=== PATIENT | male | born 1990 | race Caucasian/White ===

== ENCOUNTER 2022-11-15 10:08 | Emergency (ER) | payer SELFPAY ==
[2022-11-15] VITALS (11 sets, daily range): BP systolic 121–138; BP diastolic 57–73; PULSE 60–90; RESP 15–18; TEMP 36.2; O2SAT 95–100; BMI 23.7
--- NOTE | 2022-11-15 10:57 | DI.RAD.S_ITS ---
PROCEDURE: XR FOOT LT MIN 3V INDICATIONS: foot pain TECHNIQUE: 3 views of the foot were acquired. COMPARISON: None. FINDINGS: Bones: There is prominent irregularity with joint space narrowing and prominent remodeling with bony fragmentation along the Lisfranc joint. The distal 1st metatarsal is abnormal and highly irregular. Soft tissues: No tibiotalar joint effusion. Achilles tendon appears normal. IMPRESSION: Apparent Charcot arthropathy along the Lisfranc joint. Please correlate with known patient history. Apparent remote fracture with remodeling change involving the distal 1st metatarsal. If there is strong suspicion for developing osteomyelitis, please consider a dedicated MRI without and with contrast for further evaluation (assuming that there is no contraindication to MRI). Dictated by: Julio C Gomez M.D. on 11/15/2022 at 10:34 Approved by: Julio C Gomez M.D. on 11/15/2022 at 10:35
--- NOTE | 2022-11-15 13:00 | DI.CT.S_ITS ---
PROCEDURE: CT LE LT W CON INDICATIONS: Concern for osteo myelitis, x-ray shows Charcot arthropathy TECHNIQUE: After the administration of intravenous contrast, 3 mm axial sections acquired of the left foot and ankle, with coronal and sagittal reformats. COMPARISON: [facility], CR, XR FOOT LT MIN 3V, 11/15/2022, 11:05. FINDINGS: Image quality: Excellent. Bones: There is midfoot collapse and superior subluxation along 2nd through 5th tarsal metatarsal joints and extensive subcortical erosive changes most consistent with Charcot's arthropathy. Fairly well corticated margin along the area of erosion suggestive of a chronic process. Mild to moderate osteoarthritic changes are noted throughout rest of the left foot. Likely old fracture involving distal portion of 1st metatarsal head and neck with well corticated margin and intraosseous cystic area involving mid to distal 1st metatarsal shaft. Additional well corticated bony fragments are also noted within 1st MTP joint. Chronic appearing deformity of medial sesamoid of 1st metatarsal head is also seen. No acute fracture or dislocation. No other area of abnormal bony erosive changes or periosteal reaction is seen. Soft tissues: Diffuse soft tissue swelling and edema in visualized throughout distal left lower leg, around left ankle and foot particularly surrounding surrounding midfoot. No open wound or ulceration is identified. No subcutaneous emphysema. No discrete peripherally enhancing fluid collection is seen within left foot and ankle soft tissue. No gross full-thickness tendon rupture. No abnormal soft tissue calcifications. IMPRESSION: 1. Significant soft tissue swelling and edema in left ankle and foot particularly in midfoot region suggestive of cellulitis. No discrete drainable abscess collection is seen. 2. Chronic appearing deformity involving midfoot joints particularly along 2nd through 5th TMT joints with midfoot collapse consistent with changes related to Charcot's arthropathy. The absence of open skin wound/ ulceration and fairly well corticated margin along the area of possible erosions makes osteomyelitis less likely. 3. Likely old fracture involving 1st metatarsal head/neck region . No acute left foot fracture or dislocation. 4. No abnormal soft tissue calcifications. No full-thickness tendon rupture. Dictated by: Remigio Sullivan M.D. on 11/15/2022 at 15:23 Approved by: Remigio Sullivan M.D. on 11/15/2022 at 15:32
--- NOTE | 2022-11-15 13:19 | ED.LOWEXIN ---
HPI - Extremity Injury (Lower) <BRANDEE Palma - Last Filed: 11/15/22 17:21> General Chief Complaint: Extremity Injury, Lower Stated Complaint: lt foot pain from a fall on 11/02/22 Time Seen by Provider: 11/15/22 12:51 Source: patient Mode of arrival: Ambulatory History of Present Illness HPI Narrative: This is a 32-year-old male with history type 1 diabetes, bilateral foot infections secondary to diabetic ulcers with osteomyelitis, right foot surgery with bone removal and states he is had surgery on left foot in 2020 and was on antibiotics for a long time. He denies any recent antibiotics, infection, fever, chills but presents today with concern for osteomyelitis and fracture in his left mid foot/ankle or calcaneus that occurred on 10/29/2022 with a weight-bearing load into his left ankle while skateboarding. He states he has history of a fallen arch. He states that his pain has progressively gotten worse, he is able to ambulate on and he has been working. He is currently working for the [employer] at the [employer] nearby. 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 No prior medical records to review. Patient denies fever, chills, upper respiratory infection, weakness, sensation changes that are new other than pain in his midfoot and posterior ankle. He denies erythema, warmth, symptoms of cellulitis, an open wound, or drainage. Note: While he was waiting for lab work and orders after history and physical, he thought he felt like his blood sugar was low and esterase some juice, he started drinking the juice, blood sugar glucose was 58. Did not have mental status changes. Patient was moved to a room with a monitor for more evaluation Related Data Previous Rx's Medication Instructions Recorded diclofenac sodium 1 % topical gel 2 g topical QID #100 grams 11/15/22 hydrocodone 5 mg-acetaminophen 325 1 tab PO TID PRN pain #14 tabs 11/15/22 mg tablet oxycodone-acetaminophen 5 mg-325 1 tab PO Q8H #10 tabs 11/15/22 mg tablet (Percocet) Allergies Allergy/AdvReac Type Severity Reaction Status Date / Time No Known Drug Allergies Allergy Verified 11/15/22 10:54 Review of Systems <BRANDEE Palma - Last Filed: 11/15/22 17:21> Review of Systems ROS Unobtainable: All systems reviewed & are unremarkable except as noted in HPI and below Patient History <BRANDEE Palma - Last Filed: 11/15/22 17:21> Social History Smoking Status: Current every day smoker Smoking Status: Current every day smoker alcohol intake frequency: holidays/special occasions only Substance Use Type: marijuana Exam <BRANDEE Palma - Last Filed: 11/15/22 17:21> Narrative Exam Narrative: Reviewed vitals signs and nursing notes. General: cooperative, comfortable, in no acute distress, well groomed, afebrile HEENT: symmetrical facial expressions, moist mucous membranes Cardiovascular: regular rate and rhythm, no peripheral edema, warm extremities Respiratory: normal effort, able to speak in complete sentences, without wheezing, stridor, or abnormal breath sounds. No retractions or tachypnea. GI: abdomen soft, nontender to palpation, nondistended, without masses, rebound tenderness or exquisite tenderness with exam. MSK: moves all extremities, neurovascularly intact, no weakness, normal tone, patient's left foot with edema in the midfoot, ecchymosis and tenderness posterior to bilateral malleoli, tenderness over his Achilles tendon, sensation intact and patient complaining of pain primarily Skin: brisk capillary refill, without pallor or erythema Neuro: normal speech and cognition, A&O x3, ambulatory, clear speech Psych: mental status is grossly normal, congruent mood, normal affect, pleasant and cooperative Initial Vital Signs Initial Vital Signs: Vital Signs Temperature 97.2 F L 11/15/22 10:54 Pulse Rate 72 11/15/22 10:54 Respiratory Rate 15 11/15/22 10:54 Blood Pressure 130/68 11/15/22 10:54 Pulse Oximetry 99 11/15/22 10:54 Oxygen Delivery Method 11/15/22 10:54 <Edward Guo DO - Last Filed: 11/15/22 17:27> Initial Vital Signs Initial Vital Signs: Vital Signs Temperature 97.2 F L 11/15/22 10:54 Pulse Rate 72 11/15/22 10:54 Respiratory Rate 15 11/15/22 10:54 Blood Pressure 130/68 01/11/23 10:54 Pulse Oximetry 99 11/15/22 10:54 Oxygen Delivery Method 11/15/22 10:54 Course <BRANDEE Palma - Last Filed: 11/15/22 17:21> Orders Ordered: ED Orders 11/15/22 10:57 XR foot LT min 3V Stat 11/15/22 13:00 CT LE LT w con Stat 11/15/22 13:40 CBC Auto Diff [Complete Blood Count AUTO DIFF] Stat CMP [Comprehensive Metabolic Panel] Stat CRP [C-Reactive Protein Quant] Stat Lactate (Lactic Acid) Stat Lipase Stat 11/15/22 13:45 Blood Culture Stat Discontinued Medications Hydrocodone Bitart/Acetaminophen (Hydrocodone/Acet 5/325 Tablet) 1 tab PO NOW ONE Stop: 11/15/22 14:10 Last Admin: 11/15/22 16:43 Dose: 1 tab Documented By: ISH Hydromorphone HCl (Hydromorphone 0.5 Mg Inj) 0.5 mg IV NOW ONE Stop: 11/15/22 13:01 Last Admin: 11/15/22 14:00 Dose: 0.5 mg Documented By: ISH Sodium Chloride (Normal Saline 0.9%) 1,000 mls @ 1,000 mls/hr IV BOLUS ONE Stop: 11/15/22 15:28 Last Infusion: 11/15/22 15:43 Dose: 0 mls/hr Documented By: Admin: 11/15/22 14:47 Dose: 1,000 mls/hr Documented By: ISH Dextrose/Sodium Chloride (Dextrose 5%-0.9% Ns) 1,000 mls @ 125 mls/hr IV CONT ELEANOR Last Infusion: 11/15/22 16:54 Dose: 0 mls/hr Documented By: ISH(2) Infusion: 11/15/22 16:39 Dose: 0 mls/hr Documented By: Admin: 11/15/22 15:51 Dose: 125 mls/hr Documented By: ISH Ketorolac Tromethamine (Ketorolac 30 Mg/Ml Vial) 15 mg IV NOW ONE Stop: 11/15/22 16:46 Last Admin: 11/15/22 16:58 Dose: 15 mg Documented By: ISH Vital Signs Vital signs: Vital Signs - 8 hr 11/15/22 10:54 11/15/22 14:04 11/15/22 14:03 Temperature 97.2 F L Pulse Rate 72 78 Respiratory Rate 15 18 Blood Pressure 130/68 134/64 Pulse Oximetry 99 100 Oxygen Delivery Method Room Air Room Air 11/15/22 14:03 11/15/22 14:30 11/15/22 14:30 Temperature Pulse Rate 77 90 Respiratory Rate 18 Blood Pressure 121/57 L Pulse Oximetry 99 98 Oxygen Delivery Method 11/15/22 14:48 11/15/22 14:57 11/15/22 14:57 Temperature Pulse Rate 83 60 Respiratory Rate 18 Blood Pressure 126/73 Pulse Oximetry 100 95 Oxygen Delivery Method 11/15/22 15:01 11/15/22 15:02 11/15/22 15:02 Temperature Pulse Rate 80 Respiratory Rate Blood Pressure 138/63 Pulse Oximetry 97 98 Oxygen Delivery Method 11/15/22 15:30 11/15/22 15:30 11/15/22 16:00 Temperature Pulse Rate 80 Respiratory Rate Blood Pressure 123/66 127/68 Pulse Oximetry 98 Oxygen Delivery Method 11/15/22 16:00 11/15/22 16:30 11/15/22 16:30 Temperature Pulse Rate 76 70 Respiratory Rate 18 Blood Pressure 124/69 Pulse Oximetry 100 99 Oxygen Delivery Method <Edward Guo, DO - Last Filed: 11/15/22 17:27> Orders Ordered: ED Orders 11/15/22 10:57 XR foot LT min 3V Stat 11/15/22 13:00 CT LE LT w con Stat 11/15/22 13:40 CBC Auto Diff [Complete Blood Count AUTO DIFF] Stat CMP [Comprehensive Metabolic Panel] Stat CRP [C-Reactive Protein Quant] Stat Lactate (Lactic Acid) Stat Lipase Stat 11/15/22 13:45 Blood Culture Stat Discontinued Medications Hydrocodone Bitart/Acetaminophen (Hydrocodone/Acet 5/325 Tablet) 1 tab PO NOW ONE Stop: 11/15/22 14:10 Last Admin: 11/15/22 16:43 Dose: 1 tab Documented By: ISH Hydromorphone HCl (Hydromorphone 0.5 Mg Inj) 0.5 mg IV NOW ONE Stop: 11/15/22 13:01 Last Admin: 11/15/22 14:00 Dose: 0.5 mg Documented By: ISH Sodium Chloride (Normal Saline 0.9%) 1,000 mls @ 1,000 mls/hr IV BOLUS ONE Stop: 11/15/22 15:28 Last Infusion: 11/15/22 15:43 Dose: 0 mls/hr Documented By: Admin: 11/15/22 14:47 Dose: 1,000 mls/hr Documented By: ISH Dextrose/Sodium Chloride (Dextrose 5%-0.9% Ns) 1,000 mls @ 125 mls/hr IV CONT ELEANOR Last Infusion: 11/15/22 16:54 Dose: 0 mls/hr Documented By: ISH(2) Infusion: 11/15/22 16:39 Dose: 0 mls/hr Documented By: Admin: 11/15/22 15:51 Dose: 125 mls/hr Documented By: ISH Ketorolac Tromethamine (Ketorolac 30 Mg/Ml Vial) 15 mg IV NOW ONE Stop: 11/15/22 16:46 Last Admin: 11/15/22 16:58 Dose: 15 mg Documented By: ISH Vital Signs Vital signs: Vital Signs - 8 hr 11/15/22 10:54 11/15/22 14:04 11/15/22 14:03 Temperature 97.2 F L Pulse Rate 72 78 Respiratory Rate 15 18 Blood Pressure 130/68 134/64 Pulse Oximetry 99 100 Oxygen Delivery Method Room Air Room Air 11/15/22 14:03 11/15/22 14:30 11/15/22 14:30 Temperature Pulse Rate 77 90 Respiratory Rate 18 Blood Pressure 121/57 L Pulse Oximetry 99 98 Oxygen Delivery Method 11/15/22 14:48 11/15/22 14:57 11/15/22 14:57 Temperature Pulse Rate 83 60 Respiratory Rate 18 Blood Pressure 126/73 Pulse Oximetry 100 95 Oxygen Delivery Method 11/15/22 15:01 11/15/22 15:02 11/15/22 15:02 Temperature Pulse Rate 80 Respiratory Rate Blood Pressure 138/63 Pulse Oximetry 97 98 Oxygen Delivery Method 11/15/22 15:30 11/15/22 15:30 11/15/22 16:00 Temperature Pulse Rate 80 Respiratory Rate Blood Pressure 123/66 127/68 Pulse Oximetry 98 Oxygen Delivery Method 11/15/22 16:00 11/15/22 16:30 11/15/22 16:30 Temperature Pulse Rate 76 70 Respiratory Rate 18 Blood Pressure 124/69 Pulse Oximetry 100 99 Oxygen Delivery Method MDM - Extremity Injury (Lower) <Faye Kaiser, [facility] - Last Filed: 11/15/22 17:21> Lab Data Result diagrams: 11/15/22 13:40 11/15/22 13:40 Labs: Lab Results 11/15/22 11/15/22 11/15/22 Range/Units 13:40 13:40 13:40 WBC 9.5 (4.5-11.0) X10^3/uL RBC 4.33 L (4.5-5.9) X10^6/uL Hgb 13.3 L (13.5-17.5) g/dL Hct 39.3 L (41-53) % MCV 90.7 (80-100) fL MCH 30.6 (26-34) PG MCHC 33.8 (30-36) % RDW 12.8 (11.6-14.8) % Plt Count 287 (150-400) X10^3/uL Neut % (Auto) 45.8 L (50-75) % Lymph % (Auto) 45.6 H (25-40) % [place] % (Auto) 6.4 (3-14) % Eos % (Auto) 1.7 L (2-4) % Baso % (Auto) 0.5 (0-2) % Neut # (Auto) 4400 (1203-9711) /uL Lymph # (Auto) 4300 (7409-8650) /uL [place] # (Auto) 600 (0-900) /uL Eos # (Auto) 200 (0-450) /uL Baso # (Auto) 0 (0-100) /uL Sodium 139 (137-145) mmol/L Potassium 3.6 (3.4-5.1) mmol/L Chloride 99 (98-107) mmol/L Carbon Dioxide 29 (22-32) mmol/L BUN 20 (9-20) mg/dL Creatinine 0.79 (0.66-1.25) mg/dL Estimated GFR > 60 (>60) mL/min BUN/Creatinine Ratio 25.3 H (6-22) Glucose 44 L* (70-100) mg/dL Lactate 2.4 H (0.7-2.1) mmol/L Calcium 9.3 (8.4-10.2) mg/dL Total Bilirubin 0.5 (0.2-1.3) mg/dL AST 32 (17-59) IU/L ALT 30 (<50) IU/L Alkaline Phosphatase 98 (38-126) U/L C-Reactive Protein < 0.5 (<1.0) mg/dL Total Protein 7.8 (6.3-8.2) g/dL Albumin 4.7 (3.5-5.0) g/dL Globulin 3.1 (1.7-4.1) g/dL Albumin/Globulin Ratio 1.5 (1.0-2.8) Lipase 38 (23-300) U/L Point of Care Testing Glucose POC 207 Imaging Data Extremity x-ray #1: Radiologist's Impression: PROCEDURE:? XR FOOT LT MIN 3V ? INDICATIONS:? foot pain ? TECHNIQUE:? 3 views of the foot were acquired.? ? COMPARISON:? None. ? FINDINGS:? ? Bones:? There is prominent irregularity with joint space narrowing and prominent remodeling with bony fragmentation along the Lisfranc joint. ? The distal 1st metatarsal is abnormal and highly irregular. ? Soft tissues:? No tibiotalar joint effusion.? Achilles tendon appears normal.? ? ? IMPRESSION:? Apparent Charcot arthropathy along the Lisfranc joint.? Please correlate with known patient history. ? Apparent remote fracture with remodeling change involving the distal 1st metatarsal. ? If there is strong suspicion for developing osteomyelitis, please consider a dedicated MRI without and with contrast for further evaluation (assuming that there is no contraindication to MRI).? ? Dictated by: Julio C Gomez M.D. on 11/15/2022 at 10:34 ? ? Approved by: Julio C Gomez M.D. on 11/15/2022 at 10:35 ? CT LE: Radiologist's Impression: PROCEDURE:? CT LE LT W CON ? INDICATIONS:? Concern for osteo myelitis, x-ray shows Charcot arthropathy ? TECHNIQUE:? After the administration of intravenous contrast, 3 mm axial sections acquired of the left foot and ankle, with coronal and sagittal reformats. ? ? COMPARISON:? [facility], , XR FOOT LT MIN 3V, 11/15/2022, 11:05. ? FINDINGS:? Image quality:? Excellent.? ? Bones:? There is midfoot collapse and superior subluxation along 2nd through 5th tarsal metatarsal joints and extensive subcortical erosive changes most consistent with Charcot's arthropathy.? Fairly well corticated margin along the area of erosion suggestive of a chronic process.? Mild to moderate osteoarthritic changes are noted throughout rest of the left foot.? Likely old fracture involving distal portion of 1st metatarsal head and neck with well corticated margin and intraosseous cystic area involving mid to distal 1st metatarsal shaft.? Additional well corticated bony fragments are also noted within 1st MTP joint.? Chronic appearing deformity of medial sesamoid of 1st metatarsal head is also seen.? No acute fracture or dislocation.? No other area of abnormal bony erosive changes or periosteal reaction is seen.? ? Soft tissues:? Diffuse soft tissue swelling and edema in visualized throughout distal left lower leg, around left ankle and foot particularly surrounding surrounding midfoot.? No open wound or ulceration is identified.? No subcutaneous emphysema.? No discrete peripherally enhancing fluid collection is seen within left foot and ankle soft tissue.? No gross full-thickness tendon rupture.? No abnormal soft tissue calcifications. ? IMPRESSION:? ? 1. Significant soft tissue swelling and edema in left ankle and foot particularly in midfoot region suggestive of cellulitis.? No discrete drainable abscess collection is seen. ? 2. Chronic appearing deformity involving midfoot joints particularly along 2nd through 5th TMT joints with midfoot collapse consistent with changes related to Charcot's arthropathy.? The absence of open skin wound/ ulceration and fairly well corticated margin along the area of possible erosions makes osteomyelitis less likely. ? 3. Likely old fracture involving 1st metatarsal head/neck region .? No acute left foot fracture or dislocation. ? 4. No abnormal soft tissue calcifications.? No full-thickness tendon rupture.? ? ? Dictated by: Remigio Sullivan M.D. on 11/15/2022 at 15:23 ? ? Approved by: Remigio Sullivan M.D. on 11/15/2022 at 15:32 ? Treatment and disposition Social Determinants of Health that impact treatment or disposition: Here working locally, without insurance, type 1 diabetic MDM Narrative Medical decision making narrative: CC: Concern for osteomyelitis and fracture of left foot This is a 32-year-old male with history type 1 diabetes, bilateral foot infections secondary to diabetic ulcers with osteomyelitis, right foot surgery with bone removal and states he is had surgery on left foot in 2020 and was on antibiotics for a long time. He denies any recent antibiotics, infection, fever, chills but presents today with concern for osteomyelitis and fracture in his left mid foot/ankle or calcaneus that occurred on 10/29/2022 with a weight-bearing load into his left ankle while skateboarding. Differential diagnoses include, but are not limited to: Osteomyelitis with fracture, cellulitis, fracture secondary to bony erosion from other cause, foot/ankle sprain, ligamental injury Complicating co-morbidities: Type 1 diabetic, was hypoglycemic on presentation with a lactate, Social determinants of health that may impact treatment or disposition: Patient does not currently have insurance, type 1 diabetes, lives in [place] Data collected from: Patient Exam documented above, pertinent findings include: Ecchymosis, edema, tenderness to the midfoot and posterior malleoli with concern for Lisfranc injury, osteomyelitis,, Lab test results independently reviewed as above. Pertinent findings: Patient's glucose was 44 on serum, he was given juice and this came back up, he was then started on D5 NS at 150 an hour with a normal saline bolus infusing concurrently. He was monitored and the rest of his lab work came back overall with reassurance, no elevation to liver enzymes, lipase, end-organ, without leukocytosis or left shift, patient does have a lactate at 2.4 however his carbon dioxide is 29 and he does not have any signs of illness. Ordered diet for the patient and will pend his CT prior to starting. Ordered q.1 hour glucose checks to prevent hypoglycemic event Imaging studies independently reviewed: Left foot x-ray showing Charcot arthropathy along the Lisfranc joint, apparent remote fracture with mottling change involving the distal 1st metatarsal, patient has had history of surgery of this foot with longstanding history of type 1 diabetes with foot ulcers and bony infection in the past, CT with contrast ordered for further evaluation [address] report CT report came back, patient was receiving his fluid bolus but the D5 blood sugar came down to 25 and patient felt normal, he has a full meal, normal saline bolus was held, patient drank a full cup of juice, blood sugar came back up, will continue to check this frequently. D5 NS is now refusing wide open for a total of 2 L of fluid. I have reviewed the patient's vital signs, past medical records and encounters if available, and nursing notes. Patient's symptoms improved over duration of stay with above-stated therapies. Discussion of Management with other Health Professionals: Dr Rehman w/orthopedics Re-evaluations: Patient receiving his fluid bolus and back from CT, states that his pain is more controlled and he is comfortable, awaiting CT report CT report shows soft tissue edema in the left ankle and foot specifically midfoot region without drainable abscess collection or fluid collection, chronic appearing deformity involving the midfoot joints particularly 2nd through 5th TMT joints with midfoot collapse consistent with changes related to Charcot's arthropathy. Patient states he has history of this, likely old fracture involving the 1st metatarsal head/neck region, no acute left foot fracture dislocation, no abnormal soft tissue calcifications, no full-thickness tendon rupture. Discussion: Consultation with Dr. Rehman from Orthopedic regarding patient's imaging and history with plan of care to include recommending follow-up with Podiatry for custom orthopedic foot bed for Charcot arthropathy and stability as patient is chronically exacerbating his degenerative foot with daily work. He was offered a walking boot for increased stability compared with his boot and understands to follow-up with Podiatry. CMS is intact, no antibiotics are indicated at this time as exam and history are consistent most with Charcot arthropathy and diabetic neuro arthropathy. Patient treated with Toradol, hydrocodone, given a prescription of Percocet and hydrocodone to use as needed with topical diclofenac, ibuprofen and Tylenol, encouraged to follow-up as recommended, ice and rest it to allow it to heal. Patient's last blood sugar was 202, he had a full meal and glucose was mildly elevated with stable vital signs at time of discharge. Diagnosis: Charcot arthropathy midfoot, history of diabetes mellitus type 1 Disposition: see below, along with detailed discharge instructions that have been reviewed with patient as well as indications for ED re-evaluation and additional outpatient follow up. I have spoken with the patient/family and discussed today?s findings whom verbalize understanding. Counseling was provided regarding the diagnosis and prognosis, and specific details were provided for the plan of care. Questions are addressed and there is agreement with the plan and for follow-up. MIPS: This encounter doesn't have any diagnosis associated with MIPS criteria. Faye Chavez ARNP, personally performed the services described in the documentation, and it accurately records my words and actions. I collaborated with the ED attending physician for BOB level 2, 3, and some level 4s as needed Electronically signed by: BRANDEE Abdi <Edward Guo, - Last Filed: 11/15/22 17:27> Lab Data Labs: Lab Results 11/15/22 11/15/22 11/15/22 Range/Units 13:40 13:40 13:40 WBC 9.5 (4.5-11.0) X10^3/uL RBC 4.33 L (4.5-5.9) X10^6/uL Hgb 13.3 L (13.5-17.5) g/dL Hct 39.3 L (41-53) % MCV 90.7 (80-100) fL MCH 30.6 (26-34) PG MCHC 33.8 (30-36) % RDW 12.8 (11.6-14.8) % Plt Count 287 (150-400) X10^3/uL Neut % (Auto) 45.8 L (50-75) % Lymph % (Auto) 45.6 H (25-40) % [place] % (Auto) 6.4 (3-14) % Eos % (Auto) 1.7 L (2-4) % Baso % (Auto) 0.5 (0-2) % Neut # (Auto) 4400 (2363-0790) /uL Lymph # (Auto) 4300 (0306-4258) /uL [place] # (Auto) 600 (0-900) /uL Eos # (Auto) 200 (0-450) /uL Baso # (Auto) 0 (0-100) /uL Sodium 139 (137-145) mmol/L Potassium 3.6 (3.4-5.1) mmol/L Chloride 99 (98-107) mmol/L Carbon Dioxide 29 (22-32) mmol/L BUN 20 (9-20) mg/dL Creatinine 0.79 (0.66-1.25) mg/dL Estimated GFR > 60 (>60) mL/min BUN/Creatinine Ratio 25.3 H (6-22) Glucose 44 L* (70-100) mg/dL Lactate 2.4 H (0.7-2.1) mmol/L Calcium 9.3 (8.4-10.2) mg/dL Total Bilirubin 0.5 (0.2-1.3) mg/dL AST 32 (17-59) IU/L ALT 30 (<50) IU/L Alkaline Phosphatase 98 (38-126) U/L C-Reactive Protein < 0.5 (<1.0) mg/dL Total Protein 7.8 (6.3-8.2) g/dL Albumin 4.7 (3.5-5.0) g/dL Globulin 3.1 (1.7-4.1) g/dL Albumin/Globulin Ratio 1.5 (1.0-2.8) Lipase 38 (23-300) U/L Point of Care Testing Glucose POC 207 Discharge Plan Departure Patient Disposition: Home Clinical Impression: Charcot arthropathy of midfoot, History of diabetes mellitus, type I Instructions: Flat Foot, DI for Diabetic Neuropathy, Neuropathic Pain Activity Restrictions/Additional Instructions: *You have been diagnosed with inflammation and diabetic neuro arthropathy of your midfoot as well as chronic remodeling secondary to previous infections and inflammatory arthritis. Please use the pain medications as needed, try to avoid walking on your foot because the joints are ?crunching around ?. Please follow-up with a transfer worker for a custom foot bed and immobilizer foot as much as possible to allow the midfoot to heel. If you develop a fever, redness or cellulitis, please come back for evaluation. No antibiotics are indicated unless that changes. Please establish care with 1 of the transfer worker, I know of Dr. Anna and Dr. Simmons. Heat ice, rest as much as possible, avoid hypoglycemia. I hope you feel better soon. *What to do: *Please continue to take your regular medications as directed. [ x] New medication prescriptions sent to your pharmacy: [[facility] ] [ ] New medication written as a paper prescription [ ] No new medications given *Please follow up with your primary care provider in 2-3 days, call for an appointment. Let them know you were seen in the Emergency Department and that we asked that you be seen for follow-up. We will electronically transmit a record of today's note if your PCP is in our system *If you do not have a primary care provider please contact [phone] to establish care with one of the [facility] primary care providers. *Return to Emergency Department if you should have any new, worsening, or concerning symptoms, such as [fever greater than 101F, chills, worsening pain, persistent vomiting or other bothersome symptoms]. Prescriptions: New oxycodone-acetaminophen [Percocet] 5-325 mg tablet 1 tab PO Q8H Qty: 10 0RF hydrocodone-acetaminophen 5-325 mg tablet 1 tab PO TID PRN (Reason: pain) Qty: 14 0RF diclofenac sodium 1 % gel 2 g topical QID Qty: 100 0RF Rx Instructions: apply to foot 4 times daily as needed for pain Referrals: [facility] [Provider Group] Stefany Simmons DPM [Physician] - Magen Anna DPM [Physician] - Stand Alone Forms: Patient Portal/API <Edward Guo, - Last Filed: 11/15/22 17:27> [facility]: Dr Guo Co-Sign Statement: I was available for consultation during this patient's emergency department visit. This chart is signed by myself for administrative purposes only. I did not have direct contact with this patient during this visit. They were seen independently by the [facility].
--- NOTE | 2022-11-15 13:51 | PC.NURSE ---
fsbs 58 pt has had 1 small cup oj, pt given fork to eat lunch, and given more oj and half and egg salad sandwich
[2022-11-15 14:00] LABS: Add Manual Diff / Slide Review NO; Basophils Absolute Auto 0 /uL (0-100); Basophils Percent Auto 0.5 % (0-2); Eosinophils Absolute Auto 200 /uL (0-450); Eosinophils Percent Auto 1.7 % (2-4); Hematocrit 39.3 % (41-53); Hemoglobin 13.3 g/dL (13.5-17.5); Lymphocytes Absolute Auto 4300 /uL (1100-4500); Lymphocytes Percent Auto 45.6 % (25-40); Mean Corpuscular HGB Conc 33.8 % (30-36); Mean Corpuscular Hemoglobin 30.6 PG (26-34); Mean Corpuscular Volume 90.7 fL (80-100); Monocytes Absolute Auto 600 /uL (0-900); Monocytes Percent Auto 6.4 % (3-14); Neutrophils Absolute Auto 4400 /uL (1500-7000); Neutrophils Percent Auto 45.8 % (50-75); Platelet Count 287 X10^3/uL (150-400); Red Blood Cell Count 4.33 X10^6/uL (4.5-5.9); Red Cell Distribution Width 12.8 % (11.6-14.8); White Blood Cell Count 9.5 X10^3/uL (4.5-11.0)
[2022-11-15] MEDS: HYDROMORPHONE 0.5 MG INJ IV (14:00)
[2022-11-15 14:13] LABS: Lactate (Lactic Acid) 2.4 mmol/L (0.7-2.1)
[2022-11-15 14:16] LABS: Alanine Aminotransferase 30 IU/L (<50); Albumin 4.7 g/dL (3.5-5.0); Albumin Globulin Ratio 1.5 (1.0-2.8); Alkaline Phosphatase 98 U/L (38-126); Aspartate Aminotransferase 32 IU/L (17-59); BUN Creatinine Ratio 25.3 (6-22); Bilirubin Total 0.5 mg/dL (0.2-1.3); Blood Urea Nitrogen 20 mg/dL (9-20); C-Reactive Protein Quant < 0.5 mg/dL (<1.0); Calcium 9.3 mg/dL (8.4-10.2); Carbon Dioxide 29 mmol/L (22-32); Chloride 99 mmol/L (98-107); Estimated Glomerular Filt Rate > 60 mL/min (>60); Globulin 3.1 g/dL (1.7-4.1); HEMOLYSIS < 15 (0-50); Lipase 38 U/L (23-300); Potassium 3.6 mmol/L (3.4-5.1); Sodium 139 mmol/L (137-145); Total Protein 7.8 g/dL (6.3-8.2)
--- NOTE | 2022-11-15 14:25 | PC.NURSE ---
pt reports I feel great declines additional snacks at this time reports i feel like im not low anymore
[2022-11-15 14:28] LABS: Glucose 44 mg/dL (70-100)
[2022-11-15] MEDS: SODIUM CHLORIDE 0.9% 1,000 ML 1000 ML IV (14:47)
[2022-11-15] MEDS: DEXTROSE 5%-0.9% NS 1,000 ML 125 ML IV (15:51)
--- NOTE | 2022-11-15 15:53 | PC.NURSE ---
fsbs 43 pt eating cheese stick, oj, gingerale, yogurt, 1/2 sandwich and ivf hung d5ns at bolus rate
[2022-11-15 15:54] LABS: Reflexed Lactate in 2 Hours Y
[2022-11-15] MEDS: HYDROCODONE/ACET 5/325 TABLET 1 TAB PO (16:43)
[2022-11-15] MEDS: KETOROLAC 30 MG/ML VIAL 15 MG IV (16:58)
[2022-11-15 17:24] LABS: Lactate 2HR (Lactic Acid Rflx) 2.2 mmol/L (0.7-2.1)
== END 2022-11-15 17:05 | disposition home or self-care (01) ==
PROVIDERS: Emergency Provider Nurse Practitioner Critical Care Medicine
DX: M14.672 Charcot's joint, left ankle and foot (principal); E10.9 Type 1 diabetes mellitus without complications; W18.30XA Fall on same level, unspecified, initial encounter
CPT/HCPCS: 36415; 73630; 73701; 80053; 82962; 83605; 83690; 85025; 86140; 87040; 96361; 96374; 96375; 99284; 99285; J1170; J1885; Q9967